=== PATIENT | female | born 1980 | race Caucasian/White ===

== ENCOUNTER 2017-05-18 09:55 | Emergency (ER) | payer MEDICAID ==
[~2017-05-18] VITALS: Ht 157.5 cm; Wt 67.2 kg
[2017-05-18 10:04] VITALS: BP 123/78
[2017-05-18] MEDS ORDERED: KETOROLAC 30 MG/1 ML ONE (10:52)
[2017-05-18] MEDS ORDERED: METHOCARBAMOL 750 MG TABLET ONE (10:52)
[2017-05-18] MEDS ORDERED: METHOCARBAMOL 750 MG TABLET PO ONE (11:00)
[2017-05-18] MEDS ORDERED: KETOROLAC 30 MG/1 ML IM ONE (11:00)
== END 2017-05-18 11:17 | disposition home or self-care (01) ==
LOC: ED 11:00
DX: S20.212A Contusion of left front wall of thorax, initial encounter (principal); F17.210 Nicotine dependence, cigarettes, uncomplicated; Z88.1 Allergy status to other antibiotic agents; W01.0XXA Fall on same level from slipping, tripping and stumbling without subsequent striking against object, initial encounter; Y93.01 Activity, walking, marching and hiking; Y92.410 Unspecified street and highway as the place of occurrence of the external cause; Y99.9 Unspecified external cause status
CPT/HCPCS: 71046; 93005; 96372; 99284; J1885